=== PATIENT | female | born 2000 | race Two or more races ===

== ENCOUNTER 2021-09-09 10:15 | Emergency (ER) | payer OTHER ==
[~2021-09-09] VITALS: Ht 167.6 cm; Wt 69.8 kg
[2021-09-09 10:45] VITALS: BP 101/67
--- NOTE | 2021-09-09 11:03 | PHYS DOC ---
Past History Past Medical History: Asthma (DIEGO ERVIN APRN) Past Surgical History: No Surgical History (DIEGO ERVIN APRN) Smoking: Non-smoker Alcohol Use: None Drug Use: None (DIEGO ERVIN APRN) General Adult EDM: Chief Complaint: SHORTNESS OF BREATH HPI: HPI: Patient is a 20-year-old female that presents today with increased shortness of breath. Patient states over the last couple days she has had increased shortness of breath related to her asthma and seasonal allergies. She states that she has been using her albuterol inhaler about 4 times a day but has not been taking her Zyrtec as regularly as she should, she went to [facility] clinic they tested her come for COVID-19 rapid and it was negative at this time. Patient presents today with increased shortness of breath and and unable to relieve this with at home inhalers. Patient denies fever and chills, patient denies being around anyone else been sick. (DIEGO ERVIN APRN) Review of Systems: Review of Systems: Constitutional: Denies fever or chills Eyes: Denies change in visual acuity HENT: Denies nasal congestion or sore throat Respiratory: shortness of breath Cardiovascular: Denies chest pain or edema GI: Denies abdominal pain, nausea, vomiting, bloody stools or diarrhea : Denies dysuria Musculoskeletal: Denies back pain or joint pain Integument: Denies rash Neurologic: Denies headache, focal weakness or sensory changes Endocrine: Denies polyuria or polydipsia Lymphatic: Denies swollen glands Psychiatric: Denies depression or anxiety (DIEGO ERVIN APRN) Allergies: Allergies: Allergies Coded Allergies Type Severity Reaction Last Updated Verified Egg Derived Allergy Unknown 09/09/21 Yes Fish Containing Products Allergy Unknown 09/09/21 Yes Sulfa (Sulfonamide Antibiotics) Allergy Unknown 09/09/21 Yes nut - unspecified Allergy Unknown 09/09/21 Yes Uncoded Allergies Type Severity Reaction Last Updated Verified NUTS Allergy Unknown 09/09/21 TREE NUTS Allergy Unknown 09/09/21 (DIEGO ERVIN APRN) Physical Exam: PE: Constitutional: Well developed, well nourished, moderate distress, non-toxic appearance. [] HENT: Normocephalic, atraumatic, bilateral external ears normal, oropharynx moist, no oral exudates, nose normal. [] Eyes: PERRLA, EOMI, conjunctiva normal, no discharge. [] Neck: Normal range of motion, no tenderness, supple, no stridor. [] Cardiovascular:Heart rate regular rhythm, no murmur [] Lungs & Thorax: Bilateral breath sounds wheezes noted, no cough Abdomen: Bowel sounds normal, soft, no tenderness, no masses, no pulsatile masses. [] Skin: Warm, dry, no erythema, no rash. [] Back: No tenderness, no CVA tenderness. [] Extremities: No tenderness, no cyanosis, no clubbing, ROM intact, no edema. [] Neurologic: Alert and oriented X 3, normal motor function, normal sensory function, no focal deficits noted. [] Psychologic: Affect normal, judgement normal, mood normal. [] (DIEGO ERVIN APRN) Current Patient Data: Vital Signs: Vital Signs Date Time Temp Pulse Resp B/P (MAP) Pulse Ox O2 Delivery O2 Flow Rate FiO2 09/09/21 10:45 98.8 80 20 101/67 (78) 95 (DIEGO ERVIN APRN) EKG: EKG: [] (DIEGO REVIN APRN) Radiology/Procedures: Radiology/Procedures: [] (DIEGO ERVIN APRN) Heart Score: C/O Chest Pain: N/A Risk Factors: Risk Factors: DM, Current or recent (<one month) smoker, HTN, HLP, family history of CAD, obesity. Risk Scores: Score 0 - 3: 2.5% MACE over next 6 weeks - Discharge Home Score 4 - 6: 20.3% MACE over next 6 weeks - Admit for Clinical Observation Score 7 - 10: 72.7% MACE over next 6 weeks - Early Invasive Strategies (DIEGO ERVIN APRN) Course & Med Decision Making: Course & Med Decision Making Pertinent Labs and Imaging studies reviewed. (See chart for details) We will treat patient with DuoNeb treatment along with dexamethasone orally. We will reevaluate after DuoNeb treatment 1215 reexamined patient lungs less wheezy at this time patient states she is feeling better respiratory rate at 16 sats are at 95%. Will monitor and then discharge (DIEGO ERVIN APRN) Dragon Disclaimer: Dragon Disclaimer: This electronic medical record was generated, in whole or in part, using a voice recognition dictation system. (DIEGO ERVIN APRN) Departure Departure: Impression: Primary Impression: Asthma attack Qualified Codes: J45.901 - Unspecified asthma with (acute) exacerbation Disposition: HOME / SELF CARE / HOMELESS Condition: STABLE Referrals: DEVORA VIDAL (PCP) Patient Instructions: Asthma, Adult Additional Instructions: Prednisone 40mg take one tablet twice daily for 4 days start September 12, 2021 Albuteral Inhaler take 2 puffs every 6 hours as needed with spacer Restart Zyrtec daily Start Over the counter Flonase two spray to each nare twice daily for prevention and allergies Scripts Prednisone (PREDNISONE) 20 Mg Tablet 2 TAB PO DAILY for allergies for 5 Days, #10 TAB Start on September 12, 2021 Prov: DIEGO ERVIN APRN 09/09/21 Attending Signature Attending Signature I have reviewed the PA/ELECTRONICS ENGINEERING MANAGER's note and plan of care. I was available for consultation as needed during the patient's visit in the emergency department. I agree with the clinical impression, plan, and disposition. (CALEB CONROY DO) DIEGO ERVIN APRN Sep 09, 2021 11:03 CALEB CONROY DO Sep 10, 2021 00:37
[2021-09-09] MEDS: DEXAMETHASONE 4 MG TABLET PO ONE (11:49)
[2021-09-09] MEDS: IPRATRPIUM/ALBUTEROL 0.5/2.5MG 3 ML NEBU. NEB ONE (11:50)
[2021-09-09] MEDS ORDERED: PRED20TA PO (12:49)
== END 2021-09-09 13:05 | disposition home or self-care (01) ==
LOC: ER 10:15
DX: J45.901 Unspecified asthma with (acute) exacerbation (principal); Z20.822 Contact with and (suspected) exposure to COVID-19
CPT/HCPCS: 94640; 99283; J8540